=== PATIENT | female | born 1985 | race Caucasian/White ===

== ENCOUNTER 2017-04-28 22:06 | Emergency (ER) | payer OTHER ==
[~2017-04-28] VITALS: Ht 149.9 cm; Wt 63.5 kg
[2017-04-28] MEDS ORDERED: VITAMIN B122500 MC1 PO (22:55)
[2017-04-28] MEDS ORDERED: EXCEDRIN EXTRA1 EAC1 PO (22:56)
== END 2017-04-29 00:26 | disposition home or self-care (01) ==
LOC: ED 22:06
DX: R73.9 Hyperglycemia, unspecified (principal); F17.200 Nicotine dependence, unspecified, uncomplicated; Z88.0 Allergy status to penicillin; Z88.5 Allergy status to narcotic agent; Z79.899 Other long term (current) drug therapy
CPT/HCPCS: 80053; 81001; 82010; 82800; 85025; 99283; J7030